=== PATIENT | male | born 1985 | race African-American/Black ===

== ENCOUNTER 2022-02-16 16:48 | Inpatient (IN) ==
[2022-02-16] MEDS ORDERED: SODIUM CHLORIDE 0.9% 1,000 ML IV STA (17:32)
[2022-02-16 17:59] LABS: Basophils % 0.2 % (0.0-0.8); Hematocrit 45.9 VOL% (42.0-52.0); Hemoglobin 14.1 GM/DL (14.0-18.0); Immature Granulocytes % 0.5 %; Immature Granulocytes Absolute 0.03 #; Lymphocytes # 0.7 10*3/uL (1.4-4.0); Lymphocytes % 11.5 % (21.2-54.2); Mean Corpuscular HGB Conc 30.7 GM/DL (32-36); Mean Corpuscular Volume 86.9 FL (87-102); Mean Platelet Volume 11.8 FL (9.6-12.0); Monocytes # 0.4 10*3/uL (0.11-0.8); Monocytes % 6.2 % (1.7-12.7); Neutrophils % 81.6 % (38.7-73.9); Platelet Count 203 T/CUMM (130-400); Red Blood Count 5.28 MC/CUMM (3.8-5.5); Red Cell Distribution Width 12.7 % (9.3-17.3); White Blood Count 6.5 T/CUMM (4-12)
[2022-02-16] MEDS ORDERED: INSULIN REGULAR 100 UNIT/ML IV STA (18:19)
[2022-02-16 18:30] LABS: Platelet Estimate Adequate
[2022-02-16] MEDS ORDERED: ONDANSETRON 4 MG/2 ML VIAL IV STA (18:46)
[2022-02-16] MEDS ORDERED: ONDANSETRON 4 MG/2 ML VIAL ONE (18:46)
[2022-02-16 19:02] LABS: Albumin 3.3 G/DL (3.4-5.0); Bilirubin,Total 0.5 MG/DL (0.20-1.00); Osmolality,Calculated 305.9 MOS/KG (273-304); Total Protein 7.6 G/DL (6.4-8.2)
[2022-02-16 19:05] LABS: Potassium 6.9 MMOL/L (3.5-5.1)
[2022-02-16 19:10] LABS: Bacteria,Urine Occasional /HPF (Few); Hyaline Casts,Urine 5 /LPF (0-3); Mucus,Urine Occasional /LPF (Occasional); RBC,Urine 4 /HPF (0-4); Squamous Epithelial Cell,Urine Occasional /HPF (0-10)
[2022-02-16 19:12] LABS: Bilirubin,Urine Negative (Negative); Blood, Urine Moderate mg/dL (Negative); Glucose,Urine (UA) 500 mg/dL (Negative); Ketones,Urine 40 mg/dL (Negative); Nitrite,Urine Negative (Negative); Protein,Urine 100 mg/dL (Negative); Urine Appearance Clear (Clear); Urine Color Yellow (Yellow); Urine Specific Gravity 1.025 (1.001-1.035); Urine Urobilinogen 0.2 eU/dL (<2.0); Urine pH 5.5 (4.5-8.0)
[2022-02-16] MEDS ORDERED: MAGNESIUM SULF RIDER 2 GM/50 ML PREMIX IV PRN (19:14)
[2022-02-16] MEDS ORDERED: SODIUM BICARB INJ 100 MEQ in STERILE WATER INJ 400 ML IV PRN (19:14)
[2022-02-16] MEDS ORDERED: POTASSIUM CHLORIDE RIDER 10 MEQ/100 ML PREMIX IV PRN (19:14)
[2022-02-16] MEDS ORDERED: SODIUM CHLORIDE 0.9% IV PRN (19:14)
[2022-02-16] MEDS ORDERED: DEXTROSE 10% 250 ML BAG IV PRN ×2 (19:14)
[2022-02-16] MEDS ORDERED: SODIUM PHOSPHATE IV PRN (19:14)
[2022-02-16] MEDS ORDERED: MAGNESIUM SULF RIDER 4 GM/100 ML PREMIX IV PRN (19:14)
[2022-02-16] MEDS ORDERED: SODIUM CHLORIDE 0.9% 1,000 ML IV ONE (19:14)
[2022-02-16] MEDS ORDERED: INSULIN REGULAR DRIP 100 ML IV SCH (19:30)
[2022-02-16 20:19] LABS: Phosphorous 8.7 MG/DL (2.5-4.9)
[2022-02-16] MEDS ORDERED: SODIUM CHLORIDE 0.9% 1,000 ML IV SCH (20:30)
[2022-02-16 21:02] LABS: Calcium 8.8 MG/DL (8.5-10.1); Osmolality,Calculated 308.4 MOS/KG (273-304); Potassium 5.5 MMOL/L (3.5-5.1)
[2022-02-16] MEDS ORDERED: ALBUTEROL/IPRATROPIUM 3 ML NEB RESP TX PRN (21:25)
[2022-02-16] MEDS ORDERED: ACETAMINOPHEN 500 MG TABLET PO PRN (21:41)
[2022-02-16] MEDS ORDERED: ONDANSETRON 4 MG/2 ML VIAL IV PRN (21:41)
[2022-02-16] MEDS ORDERED: hydrALAZINE 20 MG/1 ML VIAL IV PRN (21:42)
[2022-02-16] MEDS: ENOXAPARIN 30 MG/0.3 ML SYRINGE SUBCUT SCH (22:12)
[2022-02-16] MEDS: SODIUM CHLORIDE 0.9% 1,000 ML IV SCH (23:15)
[2022-02-17 00:31] LABS: Osmolality,Calculated 307.7 MOS/KG (273-304)
[2022-02-17 00:34] LABS: Potassium 6.2 MMOL/L (3.5-5.1)
[2022-02-17] MEDS: SODIUM CHLORIDE 0.9% 1,000 ML IV SCH (03:16)
[2022-02-17 04:28] LABS: Basophils % 0.2 % (0.0-0.8); Hematocrit 35.2 VOL% (42.0-52.0); Hemoglobin 11.7 GM/DL (14.0-18.0); Immature Granulocytes % 0.9 %; Immature Granulocytes Absolute 0.06 #; Lymphocytes # 1.6 10*3/uL (1.4-4.0); Lymphocytes % 23.7 % (21.2-54.2); Mean Corpuscular HGB Conc 33.2 GM/DL (32-36); Mean Corpuscular Volume 81.3 FL (87-102); Mean Platelet Volume 11.1 FL (9.6-12.0); Monocytes # 0.8 10*3/uL (0.11-0.8); Monocytes % 11.9 % (1.7-12.7); Neutrophils % 63.3 % (38.7-73.9); Platelet Count 206 T/CUMM (130-400); Red Blood Count 4.33 MC/CUMM (3.8-5.5); Red Cell Distribution Width 12.5 % (9.3-17.3); White Blood Count 6.6 T/CUMM (4-12)
[2022-02-17 04:31] LABS: Calcium 7.9 MG/DL (8.5-10.1); Osmolality,Calculated 308.7 MOS/KG (273-304); Potassium 4.8 MMOL/L (3.5-5.1)
[2022-02-17 04:35] LABS: Phosphorous 3.2 MG/DL (2.5-4.9)
[2022-02-17] MEDS: SODIUM CHLOR 0.45% KCL 20 MEQ 20 MEQ/1,000 ML BAG IV SCH ×4 (05:04→23:53)
[2022-02-17 07:26] LABS: Calcium 7.8 MG/DL (8.5-10.1); Osmolality,Calculated 302.5 MOS/KG (273-304); Potassium 4.2 MMOL/L (3.5-5.1)
[2022-02-17] MEDS: amLODIPine 10 MG TABLET PO SCH (08:00)
[2022-02-17] MEDS: NEBIVOLOL 5 MG TABLET PO SCH (08:00)
[2022-02-17] MEDS ORDERED: INFLUENZA VIRUS VACCINE 0.5 ML SYRINGE IM ONE (09:00)
[2022-02-17] MEDS ORDERED: DEXT 5% NACL 0.45% KCL 20 MEQ 20 MEQ/1,000 ML BAG IV SCH ×2 (10:27→12:00)
[2022-02-17 11:50] LABS: Calcium 7.7 MG/DL (8.5-10.1); Osmolality,Calculated 297.4 MOS/KG (273-304)
[2022-02-17] MEDS ORDERED: GLUCAGON 1 MG VIAL IM PRN (12:28)
[2022-02-17] MEDS ORDERED: SODIUM CHLORIDE 0.45% 1,000 ML IV SCH (12:30)
[2022-02-17] MEDS ORDERED: AZITHROMYCIN 250 MG TABLET PO ONE (12:39)
[2022-02-17] MEDS: INSULIN GLARGINE 100 UNIT/ML SUBCUT SCH (14:33)
[2022-02-17] MEDS: INSULIN REGULAR 100 UNIT/ML SUBCUT SCH ×2 (17:07→20:28)
[2022-02-17] MEDS: ENOXAPARIN 30 MG/0.3 ML SYRINGE SUBCUT SCH (20:29)
[2022-02-18 05:25] LABS: Calcium 8.3 MG/DL (8.5-10.1); Osmolality,Calculated 287.7 MOS/KG (273-304); Potassium 4.9 MMOL/L (3.5-5.1)
[2022-02-18] MEDS: NEBIVOLOL 5 MG TABLET PO SCH (08:44)
[2022-02-18] MEDS: amLODIPine 10 MG TABLET PO SCH (08:44)
[2022-02-18] MEDS: INSULIN REGULAR 100 UNIT/ML SUBCUT SCH ×2 (08:45→15:02)
[2022-02-18] MEDS: INSULIN GLARGINE 100 UNIT/ML SUBCUT SCH (08:47)
[2022-02-18] MEDS ORDERED: AZITHROMYCIN 250 MG TABLET PO SCH (09:00)
[2022-02-18] MEDS ORDERED: INSULIN GLARGINE 100 UNIT/ML SUBCUT SCH (09:00)
[2022-02-18] MEDS ORDERED: PNEUMOCOCCAL VACCINE (13 VALENT) 0.5 ML SYRINGE IM ONE (14:08)
[2022-02-18] MEDS ORDERED: PNEUMOCOCCAL VACCINE (20 VALENT) 0.5 ML SYRINGE IM ONE (14:30)
[2022-02-18] MEDS: SODIUM CHLOR 0.45% KCL 20 MEQ 20 MEQ/1,000 ML BAG IV SCH (15:03)
[2022-02-18 15:37] VITALS: BP 152/93
== END 2022-02-18 17:15 | disposition home or self-care (01) | DRG 638 ==
LOC: N.ED 16:48 → N.ICU 19:14 → SUATTDRO 19:14 → N.ICU 21:06 → N.TELES 02-17 17:30
PROVIDERS: ADMIT Family Medicine; ATTEND Internal Medicine